=== PATIENT | female | born 1940 | race African-American/Black ===

== ENCOUNTER → 2016-06-13 | Outpatient (CLI) | payer OTHER ==
[~2016-06-13] MED LIST: ASPIRIN EC81 M1 PO; ASPIRIN81 M1 PO; CARAFATE1 G PO; COREG3.125 MG PO; DORZOLAMIDE HCL10 M1; DOXYCYCLINE PO; FUROSEMIDE40 MG PO; HYDROCODON-ACE1 EAC9 PO; LISINOPRIL PO; NORVASC10 MG PO; PRILOSEC PO; PROTONIX PO; SIMVASTATIN5 MG PO; TIMOPTIC2.5 ML OU; TIMOPTIC5 ML; XALATAN OP; XALATAN OS
--- NOTE | ~2016-06-13 | US37 ---
[facility] A Service of [facility] & [facility] / [facility] RADIOLOGY TEXT RESULTS PATIENT: KANG DEMARCO LOCATION: [facility] : 39 UNIT #: [id number] AGE: [address]: AC GAO SEX: F ORDER DR: [id number] [facility] [address] [place], [place] [address] [id number] O MR#: [id number] Acc #: [id number] NAME: KANG DEMARCO. : 1940 SEX: F STUDY DATE/TIME: 06/13/2016 12:20 UNIT: [facility] ROOM: STUDY DESCRIPTION: US Carotid W/Doppler Bilateral Attending Physician: Ac Goa M.D. Referring Physician: Ac Gao M.D. Ordering Physician: Spike Gao Primary Care Physician: Erin Blount M.D. MEDICAL IMAGING REPORT This report is preliminary unless electronic signature is present EXAM Carotid Doppler bilateral 06/13/2016 HISTORY Branch retinal artery occlusion left eye on 05/24/2016. Loss of balance and coordination for 1 month. Right upper extremity weakness. Benign essential hypertension FINDINGS Kennedy-scale carotid artery images were obtained as well as Doppler waveform spectral analysis and color flow Doppler imaging. The examination was interpreted according to NASCET criteria. There is elevated peak systolic velocity in the proximal right internal carotid artery at 146 cm/sec characteristic of approximately 50% to 69% diameter reduction. Peak velocity in the right common and external carotid arteries was 81 cm/sec and 242 cm/sec respectively suggesting a degree of stenosis in the right external carotid artery. There is elevated peak systolic velocity in the distal left internal carotid artery of 177 cm/sec characteristic of approximate 50% to 69% diameter reduction. Peak velocity in the left common and external carotid arteries was 93 cm/sec and 146 cm/sec respectively suggesting a degree of stenosis in the left external carotid artery. Antegrade blood flow is seen in both vertebral arteries. There is mild plaque bilaterally. IMPRESSION 1. Approximate 50% to 69% diameter reduction involving the proximal right internal carotid artery 2. Approximate 50% to 69% diameter reduction involving the distal left internal carotid artery 3. Antegrade blood flow in both vertebral arteries. 4. Elevated peak systolic velocity in both external carotid arteries suggesting degrees of stenosis bilaterally. [facility] A Service of [facility] RADIOLOGY TEXT RESULTS PATIENT: KANG DEMARCO LOCATION: CNIV : 39 UNIT #: [id number] AGE: [address]: AC GAO SEX: F ORDER DR: STAT * RESULT Dictated by... Solomon Fleming M.D. THIS IS AN ELECTRONICALLY VERIFIED REPORT Solomon Fleming M.D. at 06/14/2016 2:18 PM DANIELLE/sandra TD: 06/13/2016 15:54 JOB #: [id number] MEDICAL IMAGING REPORT Page 1 of 1 COPY
== END | disposition home or self-care (01) ==
LOC: CNIV 11:55
DX: H34.232 Retinal artery branch occlusion, left eye (principal); H34.02 Transient retinal artery occlusion, left eye; R93.8 Abnormal findings on diagnostic imaging of other specified body structures
CPT/HCPCS: 93306; 93880

== ENCOUNTER → 2016-06-18 | Outpatient (CLI) | payer OTHER ==
--- NOTE | ~2016-06-18 | CR151 ---
[facility] A Service of [facility] & [facility] / [facility] RADIOLOGY TEXT RESULTS PATIENT: KANG DEMARCO LOCATION: [facility] : 39 UNIT #: [id number] AGE: [address]: Erin Blount MD SEX: F ORDER DR: [id number] [facility] [address] [place], [place] [address] [id number] O MR#: [id number] Acc #: [id number] NAME: KANG DEMARCO. : 1940 SEX: F STUDY DATE/TIME: 06/18/2016 16:44 UNIT: [facility] ROOM: STUDY DESCRIPTION: CR Hip Min 2 Views Rt Attending Physician: Erin Blount M.D. Referring Physician: Erin Blount M.D. Ordering Physician: Erin Blount M.D. Primary Care Physician: Erin Blount M.D. MEDICAL IMAGING REPORT This report is preliminary unless electronic signature is present EXAM Right hip series 06/18/2016 HISTORY Pain. Pain began 1 month ago. No known injury. FINDINGS AP radiograph of the pelvis presented with frog-leg view right hip. No fracture or malalignment. Moderate to marked degenerative changes lower lumbar spine. Moderate to marked narrowing bilateral hip joints. Proximal femur is intact. Periarticular soft tissues unremarkable in visualized extent. Bowel gas pattern normal. Calcified phleboliths in the pelvis. Extensive atherosclerotic arterial calcifications. Dictated by... Bimal Madrid M.D. THIS IS AN ELECTRONICALLY VERIFIED REPORT Bimal Madrid M.D. at 06/19/2016 3:50 PM REJI/jaylyn TD: 06/19/2016 09:06 JOB #: [id number] MEDICAL IMAGING REPORT Page 1 of 1 COPY
--- NOTE | ~2016-06-18 | CR184 ---
[facility] A Service of [facility] & [facility] RADIOLOGY TEXT RESULTS PATIENT: KANG DEMARCO LOCATION: [facility] : 39 UNIT #: [id number] AGE: [address]: Erin Blount MD SEX: F ORDER DR: [id number] [facility] [address] [place], [place] [address] [id number] O MR#: [id number] Acc #: [id number] NAME: KANG DEMARCO. : 1940 SEX: F STUDY DATE/TIME: 06/18/2016 16:45 UNIT: [facility] ROOM: STUDY DESCRIPTION: CR Lumbar Spine Min 4 Views Attending Physician: Erin Blount M.D. Referring Physician: Erin Blount M.D. Ordering Physician: Erin Blount M.D. Primary Care Physician: Erin Blount M.D. MEDICAL IMAGING REPORT This report is preliminary unless electronic signature is present EXAM Lumbar spine series, 06/18/2016 HISTORY Pain. Hip pain. Acute right lumbar radiculopathy began one month ago. No known injury. FINDINGS AP lateral and voluntary flexion/extension lateral views of lumbar spine performed. Comparison to examination dated May 28, 2006. There are 5 lumbar-type vertebral segments. Alignment in the frontal projection within normal limits. In the lateral projection there is approximately 3.0 mm anterolisthesis of L4 on L5, new compared to prior study and probably related to degenerative facet changes. With voluntary flexion and extension, this anterolisthesis remains stable. No abnormal changes in alignment with voluntary flexion or extension. There is no evidence of fracture. Vertebral body heights are normal. Mild intervertebral disc space narrowing L1-L2, L2-L3 and moderate disc space narrowing L5-S1. Moderate to marked facet degenerative changes suggested lower lumbar spine most pronounced L4-L5, L5-S1. Lumbar degenerative changes appear more pronounced than in 2007. Multilevel degenerative change in the visualized thoracic spine without indication of acute abnormality. The visualized bony pelvis is intact. Bowel gas pattern normal. Vascular calcifications noted. Dictated by... Bimal Madrid M.D. THIS IS AN ELECTRONICALLY VERIFIED REPORT Bimal Madrid M.D. at 06/19/2016 3:50 PM REJI/desire [facility] A Service of [facility] & [facility] RADIOLOGY TEXT RESULTS PATIENT: KANG DEMARCO LOCATION: [facility] : 39 UNIT #: [id number] AGE: [address]: Erin Blount MD SEX: F ORDER DR: TD: 06/19/2016 12:18 JOB #: [id number] MEDICAL IMAGING REPORT Page 1 of 1 COPY
== END | disposition home or self-care (01) ==
LOC: CRAD 15:35
DX: M25.551 Pain in right hip (principal); M51.16 Intervertebral disc disorders with radiculopathy, lumbar region
CPT/HCPCS: 72110; 73502